=== PATIENT | male | born 1960 | race Caucasian/White ===

== ENCOUNTER 2019-02-09 10:13 | Emergency (ER) | payer OTHER ==
[2019-02-09 10:20] VITALS: BP 148/95; PULSE 74; TEMP 98.5; BMI 24.3
--- NOTE | 2019-02-09 11:01 | PDOC ---
History of Present Illness - General Chief Complaint: Sore Throat Stated Complaint: SORE THROAT/ FEVER Time Seen by Provider: 02/09/19 10:38 History Source: Patient Exam Limitations: No Limitations - History of Present Illness Is this a multiple visit Asthma Patient?: No Associated Symptoms: denies: cough, fever/chills, headaches (sorethroat X 2 days ), loss of appetite, rash Past History - Travel Traveled outside of the country in the last 30 days: No Close contact w/someone who was outside of country & ill: No - Past Medical History Allergies/Adverse Reactions: Allergies Allergy/AdvReac Type Severity Reaction Status Date / Time No Known Allergies Allergy Verified 02/09/19 10:16 Home Medications: Ambulatory Orders NK [No Known Home Medication] 02/09/19 COPD: No - Psycho Social/Smoking Cessation Hx Smoking History: Never smoked Have you smoked in the past 12 months: No Hx Alcohol Use: No Drug/Substance Use Hx: No Review of Systems - Review of Systems Constitutional: No: Chills, Fever HEENTM: Yes: Throat Pain. No: Ear Discharge, Nose Congestion, Nose Bleeding, Hearing Loss, Throat Swelling, Mouth Swelling Respiratory: No: Cough, Orthopnea, Shortness of Breath, Productive cough Cardiac (ROS): No: Chest Pain, Lightheadedness Neurological: No: Headache, Dizziness *Physical Exam - Vital Signs Last Vital Signs Temp Pulse Resp BP Pulse Ox 98.5 F 74 18 148/95 98 02/09/19 10:16 02/09/19 10:16 02/09/19 10:16 02/09/19 10:16 02/09/19 10:16 - Physical Exam General Appearance: Yes: Nourished HEENT: positive: EOMI, CRISTINA, TMs Normal, Pharyngeal Erythema. negative: Tonsillar Exudate, Tonsillar Erythema, Nasal Congestion, Rhinorrhea, Sinus Tenderness, Hearing Grossly Normal Respiratory/Chest: positive: Lungs Clear, Normal Breath Sounds Cardiovascular: positive: Regular Rhythm, Regular Rate, S1, S2 Integumentary: positive: Normal Color Neurologic: positive: brim stitcher II-XII NML intact, Fully Oriented, Alert, Normal Mood/ Affect, Normal Response, Motor Strength 5/5 Medical Decision Making - Medical Decision Making 02/09/19 11:01 58 years old male with sore throat and fever for 2 days. Positive sick contact mom with questionable strep patient denies any cough Rs neg cx sent suppportive measures advised Discharge - Discharge Information Problems reviewed: Yes Clinical Impression/Diagnosis: Sorethroat Condition: Stable Disposition: HOME - Admission No - Additional Discharge Information Prescription Drug Monitoring Program (I-STOP) results: I-STOP not reviewed - Follow up/Referral Referrals: Wellington Chowdhury MD, MD [Primary Care Provider] - - Patient Discharge Instructions Patient Printed Discharge Instructions: Strep Throat Additional Instructions: Your strep was negative today A culture was sent out to the lab and if positive you will be contacted for antibiotic in a few days Please take Motrin or Tylenol for pain Gargle with salt warm water Return to the emergency room if worsening symptoms occur - Post Discharge Activity
== END 2019-02-09 11:24 | disposition home or self-care (01) ==
LOC: JERFT 10:13
DX: J06.9 Acute upper respiratory infection, unspecified (principal)
CPT/HCPCS: 87070; 87880; 99281-25